=== PATIENT | male | born 1950 | race Caucasian/White ===

== ENCOUNTER → 2021-06-17 | Outpatient (CLI) | payer BC ==
[~2021-06-17] MED LIST: GABAPENTIN400 M1 PO; NEURONTIN800 MG/TAB PO; NORCO 325 MG-51 TAB PO; PROSCAR 5MG5 MG PO; ZETIA10 MG PO; ZYRTEC 10MG10 MG PO
== END ==
LOC: COL.VAS 12:24
DX: Z01.810 Encounter for preprocedural cardiovascular examination (principal); I27.20 Pulmonary hypertension, unspecified